=== PATIENT | female | born 1975 | race Caucasian/White ===

== ENCOUNTER 2016-08-02 18:44 | Emergency (ER) | payer OTHER ==
[~2016-08-02] VITALS: Ht 165.1 cm; Wt 83.8 kg
[~2016-08-02 18:44] MED LIST: ASPI325T PO; CIPR500T93 PO; DICL50 PO; DICY1TAB26 PO; GABA300C3 PO; HYDR-3533 PO; LORTA5 PO; METR-1 PO; NAPR220T95 PO; NRSS SQ; PROM25SU8 PO; VITA10002 PO
[2016-08-02 18:53] VITALS: BP 136/69; PULSE 92; RESP 14; TEMP 98.2; O2SAT 99
[2016-08-02] MEDS ORDERED: D32000TA PO (19:12)
[2016-08-02] MEDS ORDERED: GABA300C5 PO (19:12)
[2016-08-02] MEDS ORDERED: METF1000 PO (19:12)
[2016-08-02] MEDS ORDERED: GLIP5TAB8 PO (19:12)
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
[2016-08-02] MEDS ORDERED: KETOROLAC TROMETHAMINE 60 MG/2 ML (IM) VIAL IM ONE (19:30)
--- NOTE | 2016-08-02 20:56 | RADHPO ---
EXAM DATE/TIME: 08/02/2016 20:27 [facility] COMPARISON: No previous studies available for comparison. INDICATIONS : Pain. MEDICAL HISTORY : None. SURGICAL HISTORY : Appendectomy. section. Cholecystectomy. ENCOUNTER: Initial ACUITY: 1 day PAIN SCORE: 6/10 LOCATION: Neck. TECHNIQUE: Multiplanar, multisequence MRI examination of the cervical spine was performed. FINDINGS: VERTEBRAE: Normal vertebral body height. Homogeneous marrow signal. ALIGNMENT: No evidence of subluxation. CORD: Normal configuration and signal. POST FOSSA: The cerebellar tonsils are normal in position. C2-C3: A minimal central bulge. No abutment of the cord or central canal stenosis. Neural foramina are widel y patent bilaterally. C3-C4: A mild central bulge. No abutment of the cord or central canal stenosis. Neural foramina are widely p atent bilaterally. C4-C5: A mild broad-based disc bulge which just touches the ventral portion of the cord. No flattening. Cent ral canal measures 8 mm in the midline. Neural foramina and lateral recesses are patent. C5-C6: A mild broad-based disc bulge just touches the ventral portion of the cord without flattening. Centra l canal measures 10 mm in the midline. Neural foramina are patent bilaterally. Mild narrowing of the lateral recesses bilaterally. C6-C7: A mild broad-based disc bulge without abutment of the cord. Lateral recesses and neural foramina are patent. C7-T1: The thecal sac has a normal configuration. There is no evidence of disc herniation or spinal canal s tenosis. The neural foramina are patent bilaterally. CONCLUSION: Multilevel degenerative changes with areas of abutment of the cord but no signal change within the co rd to suggest edema or myelomalacia. Neural foramina are patent throughout. Tico Hanna Jr., MD on August 02, 2016 at 20:51 Board Certified Radiologist. This report was verified electronically.
[2016-08-02] MEDS ORDERED: HYDR-3533 PO (21:06)
[2016-08-02] MEDS ORDERED: CYCL1TAB29 PO (21:06)
[2016-08-02] MEDS ORDERED: IBUP-232 PO (21:06)
== END 2016-08-02 21:15 | disposition home or self-care (01) ==
LOC: PHEFT 18:44
DX: M54.12 Radiculopathy, cervical region (principal)
CPT/HCPCS: 72141; 96372; 99285; J1885

== ENCOUNTER 2016-10-27 13:34 | Emergency (ER) | payer OTHER ==
[~2016-10-27] VITALS: Ht 165.1 cm; Wt 79.1 kg
[~2016-10-27 13:34] MED LIST changes: -ASPI325T PO; -CIPR500T93 PO; +CYCL1TAB29 PO; +D32000TA PO; -DICL50 PO; -DICY1TAB26 PO; -GABA300C3 PO; +GABA300C5 PO; +GLIP5TAB8 PO; +IBUP-232 PO; -LORTA5 PO; +METF1000 PO; -METR-1 PO; -NAPR220T95 PO; -NRSS SQ; -PROM25SU8 PO; -VITA10002 PO
[2016-10-27 13:44] VITALS: BP 120/67; PULSE 86; RESP 16; TEMP 97.7; O2SAT 98
[2016-10-27] MEDS ORDERED: [UNRECOGNIZED DRUG - REMARK] (14:00)
[2016-10-27] MEDS ORDERED: METF1000 PO (14:00)
[2016-10-27] MEDS ORDERED: SODIUM CHLOR 0.9% 1000 ML INJ 1,000 ML IV SCH (14:26)
[2016-10-27] MEDS ORDERED: SODIUM CHLORIDE 0.9% FLUSH 10 ML FLUSH IV FLUSH PRN (14:30)
[2016-10-27] MEDS ORDERED: ONDANSETRON HCL 4 MG/2 ML VIAL IVP ONE (14:30)
[2016-10-27] MEDS ORDERED: HYDROmorphone HCL PF 2 MG/ML VIAL IVS ONE (14:30)
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
[2016-10-27] MEDS ORDERED: IOHEXOL 350 MG/ML 10 ML VIAL (for RAD DIAG) IVCONTRAST ONE (14:40)
[2016-10-27 14:42] LABS: AUTOMATED NEUTROPHIL # 7.8 TH/MM3 (1.8-7.7); BASOPHIL % 0.2 % (0.0-2.0); EOSINOPHIL # 0.1 TH/MM3 (0-0.4); EOSINOPHIL % 1.2 % (0.0-4.0); HEMATOCRIT 42.1 % (35.0-46.0); HEMO FLAGS DIFF FINAL; LYMPH % 30.4 % (9.0-44.0); LYMPHOCYTE # 3.7 TH/MM3 (1.0-4.8); MEAN CELL VOLUME 80.1 FL (80.0-100.0); MEAN CORPUSCULAR HEMOGLOBIN 25.8 PG (27.0-34.0); MEAN CORPUSCULAR HGB CONC 32.2 % (32.0-36.0); MONO % 4.8 % (0.0-8.0); NEUT % 63.4 % (16.0-70.0); PLATELET COUNT 415 TH/MM3 (150-450); RED BLOOD COUNT 5.26 MIL/MM3 (4.00-5.30); RED CELL DISTRIBUTION WIDTH 15.1 % (11.6-17.2); WHITE BLOOD COUNT 12.2 TH/MM3 (4.0-11.0)
[2016-10-27 14:51] LABS: CHLORIDE 103 MEQ/L (98-107); POTASSIUM 3.9 MEQ/L (3.5-5.1); SODIUM (NA) 137 MEQ/L (136-145)
[2016-10-27 14:55] LABS: ANION GAP 9 MEQ/L (5-15); BLOOD UREA NITROGEN 12 MG/DL (7-18)
[2016-10-27 14:56] VITALS: BP 112/60; PULSE 82; RESP 20; O2SAT 96
[2016-10-27 14:58] LABS: ALT (GPT) 32 U/L (10-53); AST (GOT) 17 U/L (15-37); GLOMERULAR FILTRATION RATE 73 ML/MIN (>89)
[2016-10-27 14:59] LABS: TOTAL BILIRUBIN ADULT 0.4 MG/DL (0.2-1.0)
[2016-10-27 15:01] LABS: ALKALINE PHOSPHATASE 61 U/L (45-117)
--- NOTE | 2016-10-27 15:11 | RADRPT ---
EXAM DATE/TIME: 10/27/2016 14:44 [facility] COMPARISON: CT ABDOMEN & PELVIS W CONTRAST, October 22, 2015, 14:53. INDICATIONS : Lower mid abdominal pain. IV CONTRAST: 96 cc Omnipaque 350 (iohexol) IV ORAL CONTRAST: No oral contrast ingested. RADIATION DOSE: 10.93 CTDIvol (mGy) MEDICAL HISTORY : Diverticulitis. Cardiovascular disease Hypercholesterolemia.Colitis SURGICAL HISTORY : Hx collapses lung in the past. ENCOUNTER: Initial ACUITY: 1 day PAIN SCALE: 10/10 LOCATION: Bilateral middle abdominal. TECHNIQUE: Volumetric scanning of the abdomen and pelvis was performed. Using automated exposure control and ad justment of the mA and/or kV according to patient size, radiation dose was kept as low as reasonably achievable to obtain optimal diagnostic quality images. DICOM format image data is available electro nically for review and comparison. FINDINGS: LOWER LUNGS: The visualized lower lungs are clear. LIVER: Homogeneous density without lesion. There is no dilation of the biliary tree. No calcified gallston es. Patient is status post prior cholecystectomy. SPLEEN: Normal size without lesion. PANCREAS: Within normal limits. KIDNEYS: Small left-sided renal cyst. Otherwise normal evaluation of the kidneys. ADRENAL GLANDS: Within normal limits. VASCULAR: There is no aortic aneurysm. BOWEL/MESENTERY: The stomach, small bowel, and colon demonstrate no acute abnormality. There is no free intraperitone al air or fluid. ABDOMINAL WALL: Within normal limits. RETROPERITONEUM: There is no lymphadenopathy. BLADDER: No wall thickening or mass. REPRODUCTIVE: Bilateral follicles with a hemorrhagic corpus luteum seen within the right ovary. The previously note d fat containing lesion near the right adnexa remains present consistent with a small dermoid. There is a small follicle also seen within the left ovary. There is a well-circumscribed 1.6 cm cystic stru cture identified within the right lower vaginal wall consistent with a Waller duct cyst. INGUINAL: There is no lymphadenopathy or hernia. MUSCULOSKELETAL: Within normal limits for patient age. CONCLUSION: Hemorrhagic corpus identified within the right ovary and stable small right-sided dermoid. Stable lucia earance of a right-sided Waller duct cyst. No evidence of inflammatory process within the abdomen or pelvis.. Jillian Robins MD on October 27, 2016 at 15:05 Board Certified Radiologist. This report was verified electronically.
[2016-10-27] MEDS ORDERED: HYDR-3535 PO (15:34)
== END 2016-10-27 15:52 | disposition home or self-care (01) ==
LOC: PHED 13:34
DX: N83.201 Unspecified ovarian cyst, right side (principal); N83.202 Unspecified ovarian cyst, left side; F17.200 Nicotine dependence, unspecified, uncomplicated
CPT/HCPCS: 74177; 80053; 85025; 96374; 96375; 99285; J1170; J2405; J7030; Q9967

== ENCOUNTER 2016-11-29 18:03 | Emergency (ER) | payer OTHER ==
[~2016-11-29] VITALS: Ht 165.1 cm; Wt 79.0 kg
[~2016-11-29 18:03] MED LIST changes: -CYCL1TAB29 PO; -HYDR-3533 PO; +HYDR-3535 PO; -IBUP-232 PO; +[UNRECOGNIZED DRUG - REMARK]
[2016-11-29 18:08] VITALS: BP 144/70; PULSE 73; RESP 16; TEMP 98.9; O2SAT 100
[2016-11-29] MEDS ORDERED: LOVA20TA PO (18:19)
[2016-11-29] MEDS ORDERED: AUGM875T3 PO (18:37)
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
== END 2016-11-29 19:03 | disposition home or self-care (01) ==
LOC: PHEFT 18:03
DX: J01.10 Acute frontal sinusitis, unspecified (principal); F17.200 Nicotine dependence, unspecified, uncomplicated
CPT/HCPCS: 99283

== ENCOUNTER 2018-02-05 10:33 | Observation (INO) ==
[2018-02-05] MEDS ORDERED: Metoprolol Tartrate 25 MG Tablet PO ONE (11:27)
[2018-02-05] MEDS ORDERED: Chlorhexidine Gluconate 2% 1 Pack (2 Cloths) TOPICAL ONE (11:27)
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
[2018-02-05] MEDS ORDERED: ceFAZolin 2 GM Premix Inj 2 GM/50 ML PIGGYBACK IV.SIG SCH (12:00)
[2018-02-05] MEDS ORDERED: Sodium Chlor 0.9% Inj 500 ML IV.SIG SCH (12:00)
[2018-02-05] MEDS ORDERED: Ropivacaine 0.5% PF Inj 20 ML Vial ONE (14:11)
[2018-02-05] MEDS ORDERED: Dexamethasone PF Inj 10 MG/ML Vial ONE (14:11)
[2018-02-05] MEDS: Ketorolac Inj 30 MG/ML (IVP) Vial IV.PUSH SCH ×2 (14:15→20:34)
[2018-02-05] MEDS ORDERED: fentaNYL Citrate Inj 100 MCG/2 ML Ampul ONE (14:41)
[2018-02-05] MEDS ORDERED: *morphine SULFATE 10 MG/ML PERIprocedure ONLY ONE (14:42)
[2018-02-05] MEDS ORDERED: HYDROmorphone PF Inj 1 MG/ML Ampul ONE (15:21)
[2018-02-05] MEDS ORDERED: DEXTROSE 50% IV.SIG PRN ×2 (15:47)
[2018-02-05] MEDS ORDERED: WATER IV.SIG PRN ×2 (15:47)
[2018-02-05] MEDS ORDERED: ONDANSETRON IV.SIG PRN ×2 (15:47)
[2018-02-05 15:48] LABS: Hematocrit 41.9 % (35.0-46.0); Mean Corpuscular HGB Conc 33.3 % (32.0-36.0); Mean Corpuscular Hemoglobin 27.7 pg (27.0-34.0); Mean Corpuscular Volume 83.1 fL (80.0-100.0); Mean Platelet Volume 8.2 fL (7.0-11.0); Platelet Count 333 th/mm3 (150-450); Red Blood Count 5.05 mil/mm3 (4.00-5.30); Red Cell Distribution Width 16.2 % (11.6-17.2)
[2018-02-05 16:03] LABS: Calcium 8.2 mg/dL (8.5-10.1); Carbon Dioxide 26.2 meq/L (21.0-32.0); Potassium 4.3 meq/L (3.5-5.1)
[2018-02-05] MEDS ORDERED: FARXIGA 5 MG PO SCH ×2 (17:00→22:00)
--- NOTE | 2018-02-05 18:17 | MP ---
cc: Beka Lomeli MD DATE OF OPERATION: 02/05/2018 PREOPERATIVE DIAGNOSIS: Pelvic pain with right ovarian dermoid. POSTOPERATIVE DIAGNOSES: Pelvic pain with right ovarian dermoid. Pathology pending. PROCEDURE PERFORMED: Laparoscopy, followed by a lash bilateral salpingo-oophorectomy. ANESTHESIA: General, ET. SURGEON: Beka Lomeli MD [employer]CTION[employer] ANALYST: Jaylen De La Rosa ESTIMATED BLOOD LOSS: 50 mL FLUIDS: 1 liter crystalloid. OBJECTIVE FINDINGS: Following the induction of adequate general endotracheal anesthesia, the patient was prepped and draped supine on the operating table in dorsal lithotomy using a sterile fashion with the bladder being drained via Araya catheterization. The abdomen was opened with a 3 cm curving infraumbilical incision using a knife to cut down through the skin to the fascia. The fascia opened transversely. Peritoneum entered with finger dissection and the GelPort placed. Laparoscope inserted. A 5 port placed in the left lower quadrant, AirSeal in the right lower quadrant. The right ovary was enlarged about 4 cm, left was normal. Cul-de-sacs were clear. Liver was normal. The uterus is globular about 12 weeks' size consistent with adenomyosis. Appendix was surgically removed, as was the gallbladder. Working first on the left, my scalpel was used to take the left ovarian vessels, left round ligament, left broad ligament, left-sided bladder flap and left uterine vessels, the same on the right. Harmonic scalpel was now used to amputate the fundus from the cervix. The pouch inserted and used to extract the uterus, tubes, and ovaries through the GelPort site intact. Irrigation was performed. No bleeding was evident. Low pressure checks were done in Trendelenburg position. No bleeding was seen. The ureters showed bilateral peristalsis. The the operative sites were now coated with Evicel. A GelPort was now removed and the peritoneum closed with a running 2-0 Vicryl, the fascia with a running locking stitch of 0 Vicryl, caught in the midline and tied, subcutaneous with 3-0 Vicryl, the skin with a running subcuticular 3-0 Monocryl. The scope was now reinserted through the lower ports and used to inspect the GelPort sites with good closure and no entrapment of tissue. Pelvis inspected. No bleeding. The scope was now removed. Gas allowed to escape. Ports were removed, sutured with 3-0 Monocryl subcuticular. Dermabond applied. Counts were correct. Anesthesia was to do a TAP block and the patient will go to recovery room. MD KISHAN Shah/ct , 05:00 PM , 05:07 PM
[2018-02-05] MEDS: Docusate Sodium 100 MG Capsule PO SCH (20:36)
[2018-02-05] MEDS: Gabapentin 300 MG Capsule PO SCH (20:46)
[2018-02-05] MEDS ORDERED: Zolpidem Tartrate 5 MG Tablet PO PRN (21:00)
[2018-02-05] MEDS: HYDROmorphone PF Inj 1 MG/ML Ampul IV.PUSH PRN (21:39)
[2018-02-06] MEDS: Ketorolac Inj 30 MG/ML (IVP) Vial IV.PUSH SCH ×2 (02:52→09:25)
[2018-02-06] MEDS: HYDROmorphone PF Inj 1 MG/ML Ampul IV.PUSH PRN ×2 (03:49→10:44)
[2018-02-06 05:46] LABS: Baso # (Auto) 0.1 th/mm3 (0.0-0.2); Baso % (Auto) 0.4 % (0.0-2.0); Hematocrit 38.8 % (35.0-46.0); Hemoglobin 12.6 gm/dL (11.6-15.3); Lymph # (Auto) 1.5 th/mm3 (1.0-4.8); Lymph % (Auto) 10.8 % (9.0-44.0); Mean Corpuscular HGB Conc 32.5 % (32.0-36.0); Mean Corpuscular Hemoglobin 27.1 pg (27.0-34.0); Mean Corpuscular Volume 83.4 fL (80.0-100.0); Mono # (Auto) 0.5 th/mm3 (0.0-0.9); Mono % (Auto) 3.8 % (0.0-8.0); Neut # (Auto) 11.4 th/mm3 (1.8-7.7); Platelet Count 309 th/mm3 (150-450); Red Blood Count 4.66 mil/mm3 (4.00-5.30); Red Cell Distribution Width 15.7 % (11.6-17.2); White Blood Count 13.4 th/mm3 (4.0-11.0)
[2018-02-06 06:07] LABS: Anion Gap 7 meq/L (5-15); Blood Urea Nitrogen 14 mg/dL (7-18); Calcium 8.1 mg/dL (8.5-10.1); Carbon Dioxide 24.5 meq/L (21.0-32.0); Chloride 108 meq/L (98-107); Glomerular Filtration Rate Greater Than 89 mL/min (>89); Glucose,Random 122 mg/dL (74-106); Potassium 3.9 meq/L (3.5-5.1); Sodium 139 meq/L (136-145)
[2018-02-06] MEDS: Gabapentin 300 MG Capsule PO SCH (09:26)
[2018-02-06] MEDS: Docusate Sodium 100 MG Capsule PO SCH (09:26)
[2018-02-06] MEDS ORDERED: FARXIGA 5 MG PO SCH (10:00)
== END 2018-02-06 14:09 | disposition home or self-care (01) ==
LOC: HSDC 10:33 → HSDI 10:33 → H1EA 16:47
PROVIDERS: ADMIT Obstetrics & Gynecology; ATTEND Obstetrics & Gynecology
PROC: LAPLASH (ICD-10-PCS; 2018-02-05 12:53)